=== PATIENT | male | born 1980 | race American Indian/Alaskan Native ===

== ENCOUNTER 2018-04-20 00:21 | Emergency (ER) | payer SELFPAY ==
[2018-04-20 01:03] LABS: Eosinophils # (Auto) 0.2 K/mm3 (0.0-0.4); Eosinophils % (Auto) 3.1 % (0.0-4.3); Hematocrit 41.5 % (35.5-45.6); Hemoglobin 13.7 gm/dl (11.8-15.2); Lymphocytes # (Auto) 2.2 K/mm3 (1.2-5.4); Lymphocytes % (Auto) 39.1 % (13.4-35.0); Mean Corpuscular HGB Conc 33 % (32-34); Mean Corpuscular Volume 98 fl (84-94); Monocytes # (Auto) 0.5 K/mm3 (0.0-0.8); Monocytes % (Auto) 8.7 % (0.0-7.3); Platelet Count 248 K/mm3 (140-440); Red Blood Count 4.24 M/mm3 (3.65-5.03); Red Cell Distribution Width 13.5 % (13.2-15.2)
[2018-04-20 01:29] LABS: Alanine Aminotransferase 11 units/L (7-56); Albumin 4.5 g/dL (3.9-5); BUN/Creatinine Ratio 17; Blood Urea Nitrogen 15 mg/dL (9-20); Calcium 9.5 mg/dL (8.4-10.2); Hemolysis Index 8
[2018-04-20 01:53] LABS: Bilirubin,Urine NEG (Negative); Blood,Urine NEG (Negative); Color,Urine Yellow (Yellow); Protein,Urine <15 mg/dL mg/dL (Negative)
--- NOTE | 2018-04-20 02:49 | Emergency Department Report ---
HPI - General Chief Complaint: Abdominal Pain Time Seen by Provider: 04/20/18 02:21 - HPI HPI: 37-year-old -[place] male presents to the emergency department with a complaint of a few days of left-sided flank pain with some radiation towards the left back. He denies any trauma or inciting event. He denies any dysuria, hematuria. There is no aggravating factors that are known but sometimes holding pressure against the side makes it feel better. He has not taken anything for her symptoms prior to presentation. He denies any past medical history. He does not have a primary care physician. No recent travel or sick contacts at home. ED Past Medical Hx - Past Medical History Previous Medical History?: No - Surgical History Past Surgical History?: No - Social History Smoking Status: Heavy Tobacco Smoker Substance Use Type: Alcohol, Marijuana - Medications Home Medications: Home Medications Medication Instructions Recorded Confirmed Last Taken Type Docusate Sodium [Colace] 100 mg PO BID PRN #20 capsule 04/20/18 Unknown Rx Ibuprofen 600 mg PO Q8H PRN #20 tablet 04/20/18 Unknown Rx ED Review of Systems ROS: Stated complaint: SIDE PAIN Other details as noted in HPI Comment: All other systems reviewed and negative Constitutional: denies: chills, fever Eyes: denies: eye pain, eye discharge, vision change ENT: denies: ear pain, throat pain Respiratory: denies: cough, shortness of breath, wheezing Cardiovascular: denies: chest pain, palpitations Gastrointestinal: other (left flank pain). denies: vomiting Genitourinary: denies: dysuria, discharge Musculoskeletal: back pain. denies: arthralgia Skin: denies: rash, lesions Neurological: denies: headache, weakness Physical Exam - Physical Exam Vital Signs: Vital Signs 04/20/18 04/20/18 00:26 00:32 Temperature 97.8 F 97.8 F Pulse Rate 76 79 Respiratory 18 Rate Blood Pressure 132/86 132/86 O2 Sat by Pulse 100 100 Oximetry Physical Exam: GENERAL: The patient is well-developed well-nourished. HEENT: Normocephalic. Atraumatic. Patient has moist mucous membranes. EYES: Extraocular motions are intact. Pupils are equal and reactive to light bilaterally. NECK: Supple. Trachea is midline. CHEST/LUNGS: Clear to auscultation. There is no respiratory distress noted. HEART/CARDIOVASCULAR: Regular. There is no tachycardia. There is no obvious murmur. ABDOMEN: Abdomen is soft, nontender. No guarding. Patient has normal bowel sounds. There is no abdominal distention. SKIN: Skin is warm and dry. NEURO: The patient is awake, alert, and oriented. The patient is cooperative. The patient has no focal neurologic deficits. The patient has normal speech. MUSCULOSKELETAL: There is no tenderness or deformity. There is no limitation range of motion. There is no evidence of acute injury. BACK: No CVA tenderness to palpation. ED Course Vital Signs 04/20/18 04/20/18 00:26 00:32 Temperature 97.8 F 97.8 F Pulse Rate 76 79 Respiratory 18 Rate Blood Pressure 132/86 132/86 O2 Sat by Pulse 100 100 Oximetry ED Medical Decision Making - Lab Data Result diagrams: 04/20/18 00:41 04/20/18 00:41 - Radiology Data Radiology results: report reviewed CT scan of the abdomen and pelvis without contrast does not show any acute process. - Medical Decision Making Patient presents to the emergency department with a complaint of some left flank pain with some radiation towards the left mid to lower back over the past few days. Labs have been mostly unremarkable except for a slight elevation in the total bilirubin. The patient does not present with any jaundice and all of his pain/discomfort is towards the left side of the flank and back. CT scan of the abdomen and pelvis was done that does not show any acute intra-abdominal or intrapelvic pathology. Vital signs stable throughout his ED course. The patient appears safe for discharge home at this time. He has been given referrals for primary care. He will return to the ER with any worsening of his symptoms or any acute distress. - Differential Diagnosis nephrolithiasis, pyelonephritis, UTI Critical Care Time: No Critical care attestation.: If time is entered above; I have spent that time in minutes in the direct care of this critically ill patient, excluding procedure time. ED Disposition Clinical Impression: Left flank pain Disposition: -01 TO HOME OR SELFCARE Is pt being admited?: No Condition: Stable Instructions: Flank Pain (ED) Additional Instructions: Please follow up with a primary care physician in the next few days. Return to the emergency Department with any worsening of your symptoms or any acute distress. Prescriptions: Ibuprofen 600 mg PO Q8H PRN #20 tablet PRN Reason: Pain , Severe (7-10) Referrals: PRIMARY CARE, [Primary Care Provider] - 3-5 Days VADIM BELL MD [Staff Physician] - 3-5 Days [facility] [Outside] - 3-5 Days Forms: Work/School Release Form(ED) Time of Disposition: 04:06
[2018-04-20] MEDS ORDERED: TORADOL IM ONE (02:50)
--- NOTE | 2018-04-20 03:47 | Cat Scan Report ---
FINAL REPORT EXAM: CT ABDOMEN PELVIS WO CON HISTORY: left flank pain COMPARISON: None available. TECHNIQUE: Contiguous axial images were obtained. Additional sagittal and coronal reformatted images were obtained. FINDINGS: Lung bases are clear. No calcified gallstones. Liver, spleen, pancreas and adrenal glands are grossly unremarkable. No nephrolithiasis or hydronephrosis. No perinephric fat stranding. Aorta and IVC norm al in caliber. Large amount of stool throughout the colon. The appendix is normal in caliber measuring 5-6 millimete rs in diameter. No focal inflammatory changes the bowel. No distal ureteral or urinary bladder calculi. Urinary bladder and prostate gland are grossly unremar kable. Left femoral familia is in place. Lumbar vertebral body heights are preserved. IMPRESSION: No gross focal inflammatory changes of the abdomen and pelvis. No obstructive uropathy urolithiasis. Moderate large amount of stool throughout the colon. Large and small bowel loops normal in caliber. T he appendix is normal in caliber.
[2018-04-20 04:22] VITALS: BP 108/74
== END 2018-04-20 04:24 | disposition home or self-care (01) ==
LOC: ED 00:21
DX: R10.9 Unspecified abdominal pain (principal); F17.200 Nicotine dependence, unspecified, uncomplicated; F12.10 Cannabis abuse, uncomplicated
CPT/HCPCS: 36415; 74176; 80053; 81001; 85025; 96372; 99284; J1885